=== PATIENT | male | born 1945 | race Caucasian/White ===

== ENCOUNTER 2018-09-16 05:37 | Inpatient (IN) | payer MEDICARE, BC ==
[2018-09-16] MEDS: VANCOMYCIN 1 GM (PMX) 250 ML IVPB ×2 (06:15→20:51)
[2018-09-16] MEDS: LACTATED RINGER'S 1,000 ML IV* (06:15)
[2018-09-16] MEDS ORDERED: BUPIVACAINE 0.25% (MPF) 30 ML INJ (06:30)
[2018-09-16] MEDS ORDERED: GLYCOPYRROLATE 0.4 MG INJ ×3 (07:05→07:43)
[2018-09-16] MEDS ORDERED: SUCCINYLCHOLINE CHLORIDE 100 MG/5 ML SYG IV (07:05)
[2018-09-16] MEDS ORDERED: NEOSTIGMINE 3 MG/3 ML SYRINGE ×2 (07:05→07:43)
[2018-09-16] MEDS ORDERED: LIDOCAINE 2% (SDV) 5 ML INJ (07:05)
[2018-09-16] MEDS ORDERED: ROCURONIUM 50 MG INJ ×2 (07:05→12:47)
[2018-09-16] MEDS ORDERED: MEPERIDINE 100 MG INJ (07:05)
[2018-09-16] MEDS ORDERED: PROPOFOL 20 ML (07:05)
[2018-09-16] MEDS: BUPIVACAINE 0.25%/EPI (SDV) 30 ML INJ (07:56)
[2018-09-16] MEDS: THROMBIN 5000 UNIT VIAL (07:56)
[2018-09-16] MEDS: POLYMYXIN/BACITRACIN 1L IRRIG (07:56)
[2018-09-16] MEDS: GELATIN SIZE 100 SPONGE (07:56)
[2018-09-16] MEDS ORDERED: LABETALOL HCL 20MG INJ (08:12)
[2018-09-16] MEDS ORDERED: EPHEDrine SULFATE 50 MG/5 ML SYG (08:52)
[2018-09-16] MEDS ORDERED: ONDANSETRON 4 MG INJ (08:52)
[2018-09-16] MEDS ORDERED: MIDAZOLAM 1 MG/ML 2 ML INJ IV (09:00)
[2018-09-16] MEDS ORDERED: LABETALOL HCL 20MG INJ IV (09:00)
[2018-09-16] MEDS ORDERED: hydrALAzine 20 MG INJ IV (09:00)
[2018-09-16] MEDS ORDERED: OXYCODONE/ACETAMINOPHEN (5/325) TAB PO ×2 (09:00)
[2018-09-16] MEDS ORDERED: METOCLOPRAMIDE 10 MG INJ IV (09:00)
[2018-09-16] MEDS ORDERED: FENTAnyl 50 MCG/ML VIAL IV ×2 (09:00)
[2018-09-16] MEDS ORDERED: MEPERIDINE 25 MG INJ IV (09:00)
[2018-09-16] MEDS ORDERED: ONDANSETRON 4 MG INJ IV (09:00)
[2018-09-16] MEDS ORDERED: HYDROmorphONE 1 MG/5 ML IV SYRINGE IV ×2 (09:00)
[2018-09-16] MEDS ORDERED: DIPHENHYDRAMINE 50 MG INJ IV (09:00)
[2018-09-16] MEDS ORDERED: EPHEDrine SULFATE 50 MG/5 ML SYG IV (09:00)
[2018-09-16] MEDS ORDERED: AL HYDROX/MG HYDROX/SIMETH 30 ML CUP PO (10:30)
[2018-09-16] MEDS ORDERED: NALOXONE (0.4 MG/ML) INJ IV (10:30)
[2018-09-16] MEDS ORDERED: BETHANECHOL 25 MG TAB PO (10:30)
[2018-09-16] MEDS ORDERED: NACL 0.9% 3 ML SYG IV (10:30)
[2018-09-16] MEDS ORDERED: DIAZEPAM 5 MG/ML SYG IM (10:30)
[2018-09-16] MEDS ORDERED: HYDROCODONE/APAP (5/325) TAB PO (10:30)
[2018-09-16] MEDS ORDERED: DIPHENHYDRAMINE 50 MG CAP PO (10:30)
[2018-09-16] MEDS ORDERED: TRIMETHOBENZAMIDE 100 MG/ML VIAL IM (10:30)
[2018-09-16] MEDS: HYDROmorphONE 1 MG/5 ML IV SYRINGE IV ×2 (11:02→11:09)
[2018-09-16] MEDS: FENTAnyl 50 MCG/ML VIAL IV ×2 (11:02→11:09)
[2018-09-16] MEDS: HYDROmorphONE 0.2 MG/ML PCA IV ×2 (11:33→21:10)
[2018-09-16] MEDS: ONDANSETRON 4 MG INJ IV ×3 (13:15→20:02)
[2018-09-16] MEDS: DEXTROSE 5%-0.45% NACL 1,000 ML IV ×2 (13:15→20:25)
[2018-09-16] MEDS: METOPROLOL (XL) 50 MG TAB PO (13:30)
[2018-09-16] MEDS: ATORVASTATIN 10 MG TAB PO (20:53)
[2018-09-16] MEDS: RANITIDINE 150 MG TAB PO (20:53)
[2018-09-17] MEDS: DEXTROSE 5%-0.45% NACL 1,000 ML IV ×2 (00:29→17:58)
[2018-09-17] MEDS: hydrALAzine 20 MG INJ IV (03:28)
[2018-09-17] MEDS ORDERED: NITROGLYCERIN (SL) 0.4 MG TAB (03:56)
[2018-09-17] MEDS: NITROGLYCERIN (SL) 0.4 MG TAB SL (04:04)
[2018-09-17] MEDS: ONDANSETRON 4 MG INJ IV ×4 (04:22→19:45)
[2018-09-17 04:27] LABS: HEMATOCRIT 35.5 % (42.0-52.0); HEMOGLOBIN 12.3 g/dl (14.0-18.0)
[2018-09-17 04:47] LABS: ANION GAP 10 (5-13); BLOOD UREA NITROGEN 13 mg/dl (7-20); CALCIUM 8.6 mg/dl (8.4-10.2); CARBON DIOXIDE 25 mmol/L (21-31); CHLORIDE 103 mmol/L (97-110); CREATININE 0.72 mg/dl (0.61-1.24); Estimated GFR > 60 mL/min (>60); GLUCOSE 173 mg/dl (70-220); POTASSIUM 4.1 mmol/L (3.5-5.1); SODIUM 138 mmol/L (135-144)
[2018-09-17 04:56] LABS: TROPONIN-I < 0.012 ng/ml (0.000-0.120)
[2018-09-17] MEDS: PANTOPRAZOLE (EC) 40 MG TAB PO (05:01)
[2018-09-17] MEDS: ISOSORBIDE MONONITRATE(SR)30 MG TAB PO ×2 (08:42→20:49)
[2018-09-17] MEDS: METOPROLOL (XL) 50 MG TAB PO (08:42)
[2018-09-17] MEDS: LOSARTAN 50 MG TAB PO (08:43)
[2018-09-17] MEDS: VANCOMYCIN 1 GM (PMX) 250 ML IVPB ×2 (08:47→20:49)
[2018-09-17] MEDS: PROCHLORPERAZINE 10 MG TAB PO (10:13)
[2018-09-17] MEDS: CEPASTAT LOZENGE MT (10:13)
[2018-09-17] MEDS: HYDROCODONE/APAP (5/325) TAB PO ×3 (10:13→19:45)
[2018-09-17] MEDS: BETHANECHOL 25 MG TAB PO ×2 (10:15→15:24)
[2018-09-17] MEDS: RANITIDINE 150 MG TAB PO ×2 (10:15→20:48)
[2018-09-17] MEDS: LORATADINE 10 MG TAB PO (10:15)
[2018-09-17] MEDS: FERROUS SULFATE (EC) 325 MG TAB PO ×3 (10:16→20:49)
[2018-09-17] MEDS: DOCUSATE SODIUM 100 MG CAP PO ×2 (10:16→20:48)
[2018-09-17] MEDS: ASCORBIC ACID 500 MG TAB PO ×2 (10:16→20:49)
[2018-09-17 10:30] LABS: TROPONIN-I 0.092 ng/ml (0.000-0.120)
[2018-09-17 11:30] LABS: CREATINE KINASE 403 IU/L (23-200)
[2018-09-17 11:36] LABS: ADD UMIC YES; UR ASCORBIC ACID NEGATIVE (NEGATIVE); UR BACTERIA FEW /HPF (NONE SEEN); UR BILIRUBIN (Dip) NEGATIVE (NEGATIVE); UR BLOOD (Dip) 3+ mg/dL (NEGATIVE); UR CLARITY SLIGHTLY CLOUDY (CLEAR); UR COLOR YELLOW (YELLOW); UR GLUCOSE (Dip) NEGATIVE (NEGATIVE); UR KETONES (Dip) NEGATIVE (NEGATIVE); UR LEUKOCYTE ESTERASE (Dip) NEGATIVE Leu/ul (NEGATIVE); UR MUCUS FEW /HPF (NONE SEEN); UR NITRITE (Dip) NEGATIVE (NEGATIVE); UR RBC 62 /HPF (0-5); UR SPECIFIC GRAVITY (Dip) 1.017 (1.003-1.030); UR TOTAL PROTEIN (Dip) NEGATIVE (NEGATIVE); UR UROBILINOGEN (Dip) NEGATIVE (NEGATIVE); UR WBC 8 /HPF (0-5)
[2018-09-17 11:44] LABS: CK INDEX 1.2; CK-MB 4.88 ng/ml (0.0-2.4)
[2018-09-17 11:55] LABS: TROPONIN-I 0.125 ng/ml (0.000-0.120)
[2018-09-17] MEDS: ACETAMINOPHEN 325 MG TAB PO (13:14)
[2018-09-17] MEDS: DIAZEPAM 5 MG TAB PO ×2 (13:15→17:50)
[2018-09-17 18:41] LABS: CREATINE KINASE 352 IU/L (23-200)
[2018-09-17 18:52] LABS: CK INDEX 1.3; CK-MB 4.49 ng/ml (0.0-2.4); TROPONIN-I 0.489 ng/ml (0.000-0.120)
[2018-09-17] MEDS: METOPROLOL 50 MG TAB PO (20:48)
[2018-09-17] MEDS: ATORVASTATIN 40 MG TAB PO (20:48)
[2018-09-18] MEDS: HYDROCODONE/APAP (5/325) TAB PO ×6 (02:33→23:07)
[2018-09-18] MEDS: ZOLPIDEM 5 MG TAB PO ×2 (02:36→23:07)
[2018-09-18 05:01] LABS: ADD MAN DIFF? NO
[2018-09-18 05:12] LABS: WHITE BLOOD COUNT 12.2 10^3/ul (4.8-10.8)
[2018-09-18 05:12] LABS: BASOPHIL # 0.1 10^3/ul (0.0-0.1); BASOPHILS % 0.4 % (0.0-2.0); EOSINOPHILS # 0.2 10^3/ul (0.0-0.5); EOSINOPHILS % 1.2 % (0.0-7.0); HEMATOCRIT 31.7 % (42.0-52.0); HEMOGLOBIN 10.7 g/dl (14.0-18.0); LYMPHOCYTES # 2.8 10^3/ul (0.8-2.9); LYMPHOCYTES % 23.2 % (15.0-51.0); MEAN CORPUSCULAR HEMOGLOBIN 31.1 pg (29.0-33.0); MEAN CORPUSCULAR HGB CONC 33.8 g/dl (32.0-37.0); MEAN CORPUSCULAR VOLUME 92.2 fl (82.0-101.0); MEAN PLATELET VOLUME 9.8 fl (7.4-10.4); MONOCYTE # 1.4 10^3/ul (0.3-0.9); MONOCYTES % 11.8 % (0.0-11.0); NEUTROPHIL # 7.6 10^3/ul (1.6-7.5); NEUTROPHILS % 62.8 % (39.0-77.0); PLATELET COUNT 197 10^3/UL (140-415); RED BLOOD COUNT 3.44 10^6/ul (4.70-6.10); RED CELL DISTRIBUTION WIDTH 12.6 % (11.5-14.5)
[2018-09-18 05:28] LABS: ANION GAP 5 (5-13); BLOOD UREA NITROGEN 12 mg/dl (7-20); CALCIUM 8.2 mg/dl (8.4-10.2); CARBON DIOXIDE 27 mmol/L (21-31); CHLORIDE 107 mmol/L (97-110); CREATINE KINASE 299 IU/L (23-200); CREATININE 0.77 mg/dl (0.61-1.24); Estimated GFR > 60 mL/min (>60); GLUCOSE 132 mg/dl (70-220); MAGNESIUM 2.1 mg/dl (1.7-2.5); POTASSIUM 3.9 mmol/L (3.5-5.1); SODIUM 139 mmol/L (135-144)
[2018-09-18 05:38] LABS: CK INDEX 1.1; CK-MB 3.26 ng/ml (0.0-2.4)
[2018-09-18 05:53] LABS: TROPONIN-I 0.393 ng/ml (0.000-0.120)
[2018-09-18] MEDS: PANTOPRAZOLE (EC) 40 MG TAB PO (06:27)
[2018-09-18] MEDS: METOPROLOL 50 MG TAB PO ×2 (09:15→20:50)
[2018-09-18] MEDS: RANITIDINE 150 MG TAB PO ×2 (09:15→20:49)
[2018-09-18] MEDS: FERROUS SULFATE (EC) 325 MG TAB PO ×3 (09:15→20:51)
[2018-09-18] MEDS: LORATADINE 10 MG TAB PO (09:15)
[2018-09-18] MEDS: LOSARTAN 50 MG TAB PO ×2 (09:16→20:51)
[2018-09-18] MEDS: ISOSORBIDE DINITRATE 5 MG TAB PO ×3 (09:16→20:52)
[2018-09-18] MEDS: ASCORBIC ACID 500 MG TAB PO ×2 (09:16→20:51)
[2018-09-18] MEDS: DOCUSATE SODIUM 100 MG CAP PO ×2 (09:16→20:51)
[2018-09-18] MEDS: DEXTROSE 5%-0.45% NACL 1,000 ML IV (13:05)
[2018-09-18] MEDS: hydrALAzine 20 MG INJ IV (14:52)
[2018-09-18] MEDS: ONDANSETRON 4 MG INJ IV (18:13)
[2018-09-18] MEDS: ATORVASTATIN 40 MG TAB PO (20:49)
[2018-09-19] MEDS: hydrALAzine 20 MG INJ IV ×2 (01:25→07:28)
[2018-09-19] MEDS: PANTOPRAZOLE (EC) 40 MG TAB PO (04:46)
[2018-09-19] MEDS: HYDROCODONE/APAP (5/325) TAB PO (04:46)
[2018-09-19] MEDS: LOSARTAN 50 MG TAB PO ×3 (07:28→21:04)
[2018-09-19] MEDS: ISOSORBIDE DINITRATE 5 MG TAB PO (09:00)
[2018-09-19] MEDS: LORATADINE 10 MG TAB PO (09:00)
[2018-09-19] MEDS: FERROUS SULFATE (EC) 325 MG TAB PO ×2 (09:00→13:00)
[2018-09-19] MEDS: DOCUSATE SODIUM 100 MG CAP PO ×2 (09:47→21:03)
[2018-09-19] MEDS: METOPROLOL 50 MG TAB PO ×2 (09:48→21:04)
[2018-09-19] MEDS: RANITIDINE 150 MG TAB PO ×2 (09:48→21:05)
[2018-09-19] MEDS: ASCORBIC ACID 500 MG TAB PO ×2 (09:48→21:04)
[2018-09-19] MEDS: ONDANSETRON 4 MG INJ IV (09:50)
[2018-09-19] MEDS: BISACODYL 10 MG SUPP PR (10:02)
[2018-09-19] MEDS: DEXTROSE 5%-0.45% NACL 1,000 ML IV (10:03)
[2018-09-19] MEDS ORDERED: KETOROLAC 30 MG INJ IV ×2 (10:30→13:30)
[2018-09-19] MEDS: KETOROLAC 30 MG INJ IV ×2 (10:46→19:47)
[2018-09-19] MEDS: ACETAMINOPHEN 325 MG TAB PO (16:40)
[2018-09-19] MEDS: ZOLPIDEM 5 MG TAB PO (21:04)
[2018-09-19] MEDS: ATORVASTATIN 40 MG TAB PO (21:04)
[2018-09-20] MEDS: hydrALAzine 20 MG INJ IV ×2 (01:28→05:48)
[2018-09-20] MEDS: ACETAMINOPHEN 325 MG TAB PO ×2 (02:54→08:51)
[2018-09-20] MEDS: KETOROLAC 30 MG INJ IV ×3 (04:07→18:43)
[2018-09-20] MEDS: DIAZEPAM 5 MG TAB PO (05:35)
[2018-09-20] MEDS: PANTOPRAZOLE (EC) 40 MG TAB PO (05:35)
[2018-09-20] MEDS: DEXTROSE 5%-0.45% NACL 1,000 ML IV (06:00)
[2018-09-20] MEDS ORDERED: NA PHOSPHATE/BIPHOS 133 ML ENEMA PR (08:00)
[2018-09-20] MEDS: AMLODIPINE 5 MG TAB PO ×2 (08:42→20:45)
[2018-09-20] MEDS: ASCORBIC ACID 500 MG TAB PO ×2 (08:43→20:45)
[2018-09-20] MEDS: METOPROLOL 50 MG TAB PO ×2 (08:43→20:45)
[2018-09-20] MEDS: LOSARTAN 50 MG TAB PO ×2 (08:43→20:46)
[2018-09-20] MEDS: DOCUSATE SODIUM 100 MG CAP PO ×2 (08:43→20:44)
[2018-09-20] MEDS: RANITIDINE 150 MG TAB PO ×2 (08:43→20:45)
[2018-09-20] MEDS: LORATADINE 10 MG TAB PO (08:43)
[2018-09-20] MEDS: BISACODYL 10 MG SUPP PR (09:08)
[2018-09-20] MEDS: ASPIRIN 81 MG TAB PO (18:15)
[2018-09-20] MEDS: ATORVASTATIN 40 MG TAB PO (20:45)
[2018-09-20] MEDS: ZOLPIDEM 5 MG TAB PO (20:46)
[2018-09-21] MEDS: DEXTROSE 5%-0.45% NACL 1,000 ML IV (02:00)
[2018-09-21] MEDS: PANTOPRAZOLE (EC) 40 MG TAB PO (06:20)
[2018-09-21] MEDS: RANITIDINE 150 MG TAB PO (08:21)
[2018-09-21] MEDS: AMLODIPINE 5 MG TAB PO (08:21)
[2018-09-21] MEDS: ASCORBIC ACID 500 MG TAB PO (08:21)
[2018-09-21] MEDS: METOPROLOL 50 MG TAB PO (08:21)
[2018-09-21] MEDS: DOCUSATE SODIUM 100 MG CAP PO (08:21)
[2018-09-21] MEDS: LOSARTAN 50 MG TAB PO (08:24)
[2018-09-21] MEDS: ASPIRIN 81 MG TAB PO (08:24)
[2018-09-21] MEDS: KETOROLAC 30 MG INJ IV (10:15)
[2018-09-21] MEDS: LORATADINE 10 MG TAB PO (10:16)
[2018-09-21] MEDS: DOXAZOSIN 2 MG TAB PO (11:41)
== END 2018-09-21 13:41 | disposition home or self-care (01) | DRG 515 ==
LOC: REC 05:37 → MS1 11:27 → 6WM 09-18 18:21 → MS1 11:27 → 6WM 09-18 18:22 → ICU 09-17 13:58 → REC 09-17 17:37 → ICU 09-17 18:00
PROC: 01N10ZZ Release Cervical Nerve, Open Approach (ICD-10-PCS; principal; 2018-09-16 06:59)
DX: M48.02 Spinal stenosis, cervical region (principal); I21.4 Non-ST elevation (NSTEMI) myocardial infarction; I16.1 Hypertensive emergency; R51 Headache; K59.00 Constipation, unspecified
CPT/HCPCS: 70450; 72020; 80048; 81001; 82550; 82553; 83735; 84484; 85014; 85018; 85025; 86850; 86900; 86901; 86920; 87081; 87086; 88304; 88311; 93005; 93306; 97116; 97162; 97164; 97530; 99217